=== PATIENT | male | born 1960 | race Caucasian/White ===

== ENCOUNTER 2017-06-20 10:38 | Day surgery (SDC) | payer OTHER ==
[2017-06-19 14:04] VITALS: BMI 35.5
[2017-06-20] MEDS ORDERED: MIDAZOLAM HCL 2 MG/2 ML SINGLE DOSE VIAL ONE (11:42)
[2017-06-20] MEDS ORDERED: BUPIVACAINE HCL/PF (5 MG/ML) 30 ML VIAL IJ ONE (11:42)
[2017-06-20] MEDS ORDERED: DEXAMETHASONE SOD PHOSPHATE/PF 10 MG/ML SDV ONE (11:42)
[2017-06-20] MEDS ORDERED: MEPIVACAINE HCL/PF 1% 30 ML VIAL ONE (11:47)
[2017-06-20] MEDS ORDERED: ONDANSETRON 4 MG/2 ML VIAL ONE (12:07)
[2017-06-20] MEDS ORDERED: ceFAZolin SODIUM 1 GM VIAL ONE (12:07)
[2017-06-20] MEDS ORDERED: DEXAMETHASONE SOD PHOSPHATE 4 MG/1 ML VIAL ONE (12:07)
[2017-06-20] MEDS ORDERED: PROPOFOL 20 ML ONE ×2 (12:11)
[2017-06-20 13:59] VITALS: BP 139/68; PULSE 56; TEMP 98.1
[2017-06-20] MEDS ORDERED: LACTATED RINGERS SOLUTION 1,000 ML IV SCH (15:00)
[2017-06-20] MEDS ORDERED: ONDANSETRON 4 MG/2 ML VIAL IVPUSH PRN (15:03)
[2017-06-20] MEDS ORDERED: oxyCODONE HCL 5 MG TABLET PO PRN (15:04)
--- NOTE | 2017-06-21 14:21 | OP ---
DATE OF OPERATION: 06/20/2017 PREOPERATIVE DIAGNOSIS: Right distal biceps rupture. POSTOPERATIVE DIAGNOSIS: Right distal biceps rupture. OPERATIVE PROCEDURE: Right distal biceps repair. SURGEON: Scarlet Hale MD METAL ROOFING MECHANIC: CAMILA Cage ANESTHESIA: Regional. COMPLICATIONS: None. ESTIMATED BLOOD LOSS: Minimal. INDICATION FOR PROCEDURE: The patient is a 56-year-old male with the above finding indicated for operative treatment. Risks, benefits, and alternatives were discussed with the patient at length. Proper informed consent was obtained. PROCEDURE: After proper identification of the patient and the correct operative site, patient was brought to the operating room and placed supine on the operating table. Prominences well padded. Regional anesthesia with sedation was given. Intravenous antibiotics were given. Timeout procedure was performed. Right upper extremity was prepped and draped in the usual sterile fashion with a well-padded tourniquet placed as well as a sterile prep. Esmarch bandage to exsanguinate the right upper extremity. Tourniquet was inflated to 250 mmHg. A transverse incision was made distal to the antecubital fossa crease. Incision was taken sharply through the skin with blunt and sharp dissection, through the subcutaneous tissues, taking care to protect the lateral antebrachial cutaneous nerve. The distal biceps was found to be ruptured and had been retracted to the level of the antecubital fossa. It was brought into the wound distally and debrided. It had a significant hypertrophy at its end, indicating chronic tendinosis. This was debrided to an 8-mm tendon with healthy edges. Blunt dissection was then performed down to the bicipital tuberosity. A guidewire was placed through the bicipital tuberosity as ulnarwards as possible. This was then over-reamed with an 8-mm reamer. The biceps tendon was then whip-stitched with a number 2 FiberWire suture and a biceps button was used and passed through the socket and a tension-slide technique was used to approximate and pull the distal tendon of the biceps into the socket. One limb of the suture was then passed through the tendon and tied for secure fixation. This was backed up with a second fixation with a 7-mm [employer] tenodesis screw placed in the radial aspect of the socket. This provided further ulnar positioning of the biceps tendon. Arm was taken through a range of motion. Full range of motion was achieved. No structures were entrapped. Wound was irrigated with saline. All bony fragments were confirmed to be removed. The wound was repaired in layers using 3-0 Vicryl and 4-0 Monocryl. Steri-Strips and a sling were placed. The patient was reversed from anesthesia and brought to Recovery in stable condition. He tolerated the procedure well. Sergo Roque, the medical assistant, was integral throughout this procedure. Procedure could not have been performed without a skilled operative medical assistant. SCARLET HALE M.D. [id number]
== END 2017-06-20 14:00 | disposition home or self-care (01) ==
LOC: FASU 10:38
PROVIDERS: ATTEND Orthopaedic Surgery Hand Surgery
PROC: 0LM30ZZ Reattachment of Right Upper Arm Tendon, Open Approach (ICD-10-PCS; principal; 2017-06-20 12:00)
DX: S46.211A Strain of muscle, fascia and tendon of other parts of biceps, right arm, initial encounter (principal); X58.XXXA Exposure to other specified factors, initial encounter; Y93.9 Activity, unspecified; Y92.9 Unspecified place or not applicable